=== PATIENT | female | born 1945 | race Caucasian/White ===

== ENCOUNTER 2021-05-16 10:42 | Inpatient (IN) | payer OTHER, MEDICARE ==
[~2021-05-16] VITALS: Ht 162.6 cm; Wt 104.6 kg
[2021-05-16 11:28] LABS: BASO # 0.1 x10^3/uL (0.0-0.2); BASO % 1 % (0-3); EOS # 0.1 x10^3/uL (0.0-0.7); EOS % 1 % (0-3); HEMATOCRIT 44.3 % (36.0-47.0); HEMOGLOBIN 14.5 g/dL (12.0-15.5); LYMPH # 2.4 x10^3/uL (1.0-4.8); LYMPH % 20 % (24-48); MEAN CORPUSCULAR HEMOGLOBIN 31 pg (25-35); MEAN CORPUSCULAR HGB CONC 33 g/dL (31-37); MEAN CORPUSCULAR VOLUME 93 fL (79-100); MONO % 9 % (0-9); NEUT # 8.3 x10^3uL (1.8-7.7); NEUT % 70 % (31-73); PLATELET COUNT 185 x10^3/uL (140-400); RED BLOOD COUNT 4.76 x10^6/uL (3.50-5.40); RED CELL DISTRIBUTION WIDTH 13.6 % (11.5-14.5); WHITE BLOOD COUNT 11.8 x10^3/uL (4.0-11.0)
[2021-05-16] MEDS ORDERED: MORPHINE SULFATE 4 MG/ML DISP.SYRIN. IV ONE (11:30)
[2021-05-16] MEDS ORDERED: IV NORMAL SALINE 1,000ML 1,000 ML IV ONE (11:30)
[2021-05-16] MEDS ORDERED: ONDANSETRON PF 4 MG/2 ML VIAL. IVP ONE (11:30)
--- NOTE | 2021-05-16 11:39 | PHYS DOC ---
Past History Past Surgical History: No Surgical History Alcohol Use: Rarely General Adult EDM: Chief Complaint: FLANK PAIN HPI: HPI: Patient is a 76-year-old female who presents with lower abdominal pain and bilateral flank pain. Patient states "it feels like I have a kidney stone". "The last kidney stones I had I had to have surgery". Patient states that symptoms started 2 weeks ago, been taking 800 mg ibuprofen every 6 hours with little relief. Rating pain 8/10. Patient is currently being treated for a UTI on antibiotics from her PCP. Denies fever. Review of Systems: Review of Systems: Constitutional: Denies fever or chills Eyes: Denies change in visual acuity HENT: Denies nasal congestion or sore throat Respiratory: Denies cough or shortness of breath Cardiovascular: Denies chest pain or edema GI: Reports lower abdominal pain, nausea, denies vomiting, bloody stools or diarrhea : Denies dysuria Musculoskeletal: Reports bilateral flank pain Integument: Denies rash Neurologic: Denies headache, focal weakness or sensory changes Endocrine: Denies polyuria or polydipsia Lymphatic: Denies swollen glands Psychiatric: Denies depression or anxiety Current Medications: Current Meds: Current Medications Medications (Trade) Dose Ordered Sig/Jaiden Start Time Stop Time Status Last Admin Dose Admin Morphine Sulfate (Morphine 4mg Syringe) 4 mg 1X ONCE 05/16/21 11:30 05/16/21 11:31 DC 05/16/21 11:21 4 MG Ondansetron HCl (Zofran) 4 mg 1X ONCE 05/16/21 11:30 05/16/21 11:31 DC 05/16/21 11:23 4 MG Sodium Chloride 1,000 ml @ 1,000 mls/hr 1X ONCE 05/16/21 11:30 05/16/21 12:29 05/16/21 11:19 1,000 MLS/HR Allergies: Allergies: Allergies Coded Allergies Type Severity Reaction Last Updated Verified No Known Drug Allergies 05/16/21 No Physical Exam: PE: Constitutional: Well developed, well nourished, no acute distress, non-toxic appearance. [] HENT: Normocephalic, atraumatic, bilateral external ears normal, oropharynx moist, no oral exudates, nose normal. [] Eyes: PERRLA, EOMI, conjunctiva normal, no discharge. [] Neck: Normal range of motion, no tenderness, supple, no stridor. [] Cardiovascular:Heart rate regular rhythm, no murmur [] Lungs & Thorax: Bilateral breath sounds clear to auscultation [] Abdomen: Bowel sounds normal, soft, lower abdomen tenderness, no masses, no p ulsatile masses. [] Skin: Warm, dry, no erythema, no rash. [] Back: No tenderness, bilateral CVA tenderness. [] Extremities: No tenderness, no cyanosis, no clubbing, ROM intact, no edema. [] Neurologic: Alert and oriented X 3, normal motor function, normal sensory function, no focal deficits noted. [] Psychologic: Affect normal, judgement normal, mood normal. [] Current Patient Data: Labs: Laboratory Tests Test 05/16/21 10:45 White Blood Count 11.8 x10^3/uL (4.0-11.0) H Red Blood Count 4.76 x10^6/uL (3.50-5.40) Hemoglobin 14.5 g/dL (12.0-15.5) Hematocrit 44.3 % (36.0-47.0) Mean Corpuscular Volume 93 fL (79-100) Mean Corpuscular Hemoglobin 31 pg (25-35) Mean Corpuscular Hemoglobin Concent 33 g/dL (31-37) Red Cell Distribution Width 13.6 % (11.5-14.5) Platelet Count 185 x10^3/uL (140-400) Neutrophils (%) (Auto) 70 % (31-73) Lymphocytes (%) (Auto) 20 % (24-48) L Monocytes (%) (Auto) 9 % (0-9) Eosinophils (%) (Auto) 1 % (0-3) Basophils (%) (Auto) 1 % (0-3) Neutrophils # (Auto) 8.3 x10^3uL (1.8-7.7) H Lymphocytes # (Auto) 2.4 x10^3/uL (1.0-4.8) Monocytes # (Auto) 1.0 x10^3/uL (0.0-1.1) Eosinophils # (Auto) 0.1 x10^3/uL (0.0-0.7) Basophils # (Auto) 0.1 x10^3/uL (0.0-0.2) Vital Signs: Vital Signs Date Time Temp Pulse Resp B/P (MAP) Pulse Ox O2 Delivery O2 Flow Rate FiO2 05/16/21 10:57 98.2 86 20 174/116 99 Room Air EKG: EKG: [] Radiology/Procedures: Radiology/Procedures: []EXAM: Abdomen and pelvis CT without intravenous contrast. HISTORY: Flank pain. TECHNIQUE: Computed tomographic images of the abdomen and pelvis were obtained without contrast. Multiplanar reformatting was performed. *One or more of the following individualized dose reduction techniques were utilized for this examination: 1. Automated exposure control. 2. Adjustment of the mA and/or kV according to patient size. 3. Use of iterative reconstruction technique. COMPARISON: 10/24/2013 FINDINGS: Evaluation of the lower thorax is unremarkable. There is a small hiatal hernia and there are postoperative changes involving the stomach. There is suspected hepatic steatosis. No focal hepatic lesion is seen. There is mild hepatomegaly. The gallbladder, pancreas, spleen and adrenal glands are unremarkable.. There is no evidence of hydronephrosis. There are punctate bilateral renal stones, the largest of which measure 1 mm. There is mild right renal atrophy and slight cortical lobulation likely due to scarring. The bladder is unremarkable. The uterus is unremarkable. There is a 4.4 cm fluid density structure within the right lower quadrant which may be due to a loop of fluid-filled bowel or ovarian or paraovarian in etiology. This is increased compared to the prior study. There is no appendicitis. There is extensive colonic diverticulosis. There is superimposed wall thickening and surrounding stranding and trace fluid involving the proximal sigmoid colon due to diverticulitis. There is an associated mural abscess. No drainable abscess is seen. There is no free air. The aorta is normal in caliber. There is no lymphadenopathy. There are degenerative changes involving the spine. There is no acute or suspicious osseous lesion. IMPRESSION: 1. Acute diverticulitis involving the proximal sigmoid colon superimposed on extensive colonic diverticulosis. There is an associated mural abscess. No drainable abscess or free air is seen. 2. Bilateral nephrolithiasis. 3. Hepatomegaly and hepatic steatosis. 4. Small hiatal hernia and postoperative changes involving the stomach. 5. 4.4 cm fluid density structure within the right lower quadrant. This is increased compared to the prior study. This may be an ovarian or paraovarian cyst or fluid-filled loop of small bowel. However, no convincing indication with the adjacent bowel loops is seen. The slow interval change favors benignity. Pelvic sonography may be useful if there is clinical concern. Electronically signed by: Génesis Thomas MD (05/16/2021 11:57 AM) [id number] Heart Score: C/O Chest Pain: No Risk Factors: Risk Factors: DM, Current or recent (<one month) smoker, HTN, HLP, family history of CAD, obesity. Risk Scores: Score 0 - 3: 2.5% MACE over next 6 weeks - Discharge Home Score 4 - 6: 20.3% MACE over next 6 weeks - Admit for Clinical Observation Score 7 - 10: 72.7% MACE over next 6 weeks - Early Invasive Strategies Course & Med Decision Making: Course & Med Decision Making Pertinent Labs and Imaging studies reviewed. (See chart for details) [] 76 old female presents with lower abdominal pain that radiates to bilateral flank. Patient states that she is currently being treated for a UTI and was placed on antibiotics from her PCP. Patient has a history of kidney stones and had to have lithotripsy the last 2 stones she has had. Patient been taking 800 mg ibuprofen every 6 hours with no pain relief. Symptoms started 2 weeks ago. Patient given 4 mg morphine, 4 mg of Zofran, NS bolus. CT abdomen pelvis ordered to rule out stones. CT of abdomen pelvis showed no evidence of hydronephrosis.CT shows acute diverticulitis involving the proximal sigmoid colon superimposed on extensive colonic diverticulosis. There is an associated mural abscess. No drainable abscess. Discussed results with patient and discussed admission plan. Spoke with Dr. Zambrano who will accept patient. Patient started on metronidazole and ciprofloxacin. Patient is stating her pain is controlled at this time. Dragon Disclaimer: Dragon Disclaimer: This electronic medical record was generated, in whole or in part, using a voice recognition dictation system. Departure Departure: Impression: Primary Impression: Diverticulitis Disposition: HOME / SELF CARE / HOMELESS Condition: STABLE Referrals: KELLEY MALONE (PCP) DUNG TATE APRN May 16, 2021 11:39
[2021-05-16 11:48] LABS: CALCIUM 8.8 mg/dL (8.5-10.1); CREATININE 0.8 mg/dL (0.6-1.0); GFR 70.1; POTASSIUM 3.9 mmol/L (3.5-5.1)
[2021-05-16 11:53] LABS: ALBUMIN 3.3 g/dL (3.4-5.0); TOTAL BILIRUBIN 0.8 mg/dL (0.2-1.0); TOTAL PROTEIN 6.6 g/dL (6.4-8.2)
--- NOTE | 2021-05-16 12:00 | RAD ---
EXAM: Abdomen and pelvis CT without intravenous contrast. HISTORY: Flank pain. TECHNIQUE: Computed tomographic images of the abdomen and pelvis were obtained without contrast. Mult iplanar reformatting was performed. *One or more of the following individualized dose reduction techniques were utilized for this examina tion: 1. Automated exposure control. 2. Adjustment of the mA and/or kV according to patient size. 3. Use of iterative reconstruction technique. COMPARISON: 10/24/2013 FINDINGS: Evaluation of the lower thorax is unremarkable. There is a small hiatal hernia and there ar e postoperative changes involving the stomach. There is suspected hepatic steatosis. No focal hepatic lesion is seen. There is mild hepatomegaly. The gallbladder, pancreas, spleen and adrenal glands are unremarkable.. There is no evidence of hydronephrosis. There are punctate bilateral renal stones, the largest of whi ch measure 1 mm. There is mild right renal atrophy and slight cortical lobulation likely due to scarr ing. The bladder is unremarkable. The uterus is unremarkable. There is a 4.4 cm fluid density structu re within the right lower quadrant which may be due to a loop of fluid-filled bowel or ovarian or par aovarian in etiology. This is increased compared to the prior study. There is no appendicitis. There is extensive colonic diverticulosis. There is superimposed wall thick ening and surrounding stranding and trace fluid involving the proximal sigmoid colon due to diverticu litis. There is an associated mural abscess. No drainable abscess is seen. There is no free air. The aorta is normal in caliber. There is no lymphadenopathy. There are degenerative changes involving the spine. There is no acute or suspicious osseous lesion. IMPRESSION: 1. Acute diverticulitis involving the proximal sigmoid colon superimposed on extensive colonic divert iculosis. There is an associated mural abscess. No drainable abscess or free air is seen. 2. Bilateral nephrolithiasis. 3. Hepatomegaly and hepatic steatosis. 4. Small hiatal hernia and postoperative changes involving the stomach. 5. 4.4 cm fluid density structure within the right lower quadrant. This is increased compared to the prior study. This may be an ovarian or paraovarian cyst or fluid-filled loop of small bowel. However, no convincing indication with the adjacent bowel loops is seen. The slow interval change favors carmen gnity. Pelvic sonography may be useful if there is clinical concern. Electronically signed by: Génesis Thomas MD (05/16/2021 11:57 AM) [id number]
[2021-05-16] MEDS ORDERED: CIPROFLOXACIN 400MG PREMIX 200 ML IV ONE (13:15)
[2021-05-16 13:47] LABS: BACTERIA,URINE FEW /HPF (0-FEW); BILIRUBIN,URINE NEG (NEG); CLARITY,URINE CLEAR; COLOR,URINE YELLOW; GLUCOSE,URINE NEG (NEG); NITRITE,URINE NEG (NEG); RBC,URINE 0 /HPF (0-2); UROBILINOGEN,URINE 0.2 mg/dL (0.2 mg/dL); WBC,URINE RARE /HPF (0-4)
[2021-05-16] MEDS ORDERED: IV DEXTROSE 5%-LACT RINGERS 1,000 ML IV ONE (22:15)
[2021-05-16 23:24] VITALS: BP 172/83
[2021-05-16] MEDS ORDERED: CRESTOR20 MG PO (23:36)
[2021-05-16] MEDS ORDERED: CEFU500T46 PO (23:36)
[2021-05-16] MEDS ORDERED: METF500T16 PO (23:36)
[2021-05-16] MEDS ORDERED: LACT1CAP38 PO (23:36)
[2021-05-16] MEDS ORDERED: PHEN100T82 PO (23:36)
[2021-05-16] MEDS ORDERED: PROG100C15 PO (23:36)
[2021-05-16] MEDS ORDERED: CIPR500T2 PO (23:36)
[2021-05-17] MEDS: MORPHINE SULFATE 2 MG/ML DISP.SYRIN. IVP PRN ×3 (03:58→19:46)
[2021-05-17 05:33] VITALS: BP 143/81
[2021-05-17] MEDS: ONDANSETRON PF 4 MG/2 ML VIAL. IVP PRN ×2 (10:24→19:46)
[2021-05-17 10:37] VITALS: BP 163/84
[2021-05-17 15:35] VITALS: BP 158/73
[2021-05-17] MEDS ORDERED: DEXTROSE 50% 25 GM / 50ML DISP.SYRIN. IV PRN (15:45)
--- NOTE | 2021-05-17 16:18 | HP ---
HISTORY OF PRESENT ILLNESS: The patient is a 76-year-old female patient who presented to the Emergency Room with the lower abdominal pain, bilateral flank pain. She stated that she has been complaining of this pain for the last 3 weeks and as of on the day of admission, her pain has dramatically worsened. She has been taking 800 mg of ibuprofen every 6 hours with good relief. She rated her pain as about 8/10. She was treated for an UTI by her primary care physician with antibiotic. She denied any nausea or vomiting. Denies any fever, did have some diarrhea, but denies any constipation. She denied any dysuria, frequency or hematuria. She was extensively investigated in the emergency room of [facility] where she has had lab work, which showed that her chemistry was unremarkable. Her white cell count was slightly elevated at 11.8. Her urinalysis was essentially unremarkable; however, CT scan of the abdomen and pelvis showed that the patient has acute diverticulitis involving the proximal sigmoid colon superimposed on extensive colonic diverticulosis and associated mural abscess. No drainable abscess or free air is seen. Bilateral nephrolithiasis, hepatomegaly and hepatic steatosis, small hiatal hernia and postoperative changes involving the stomach. She has also 4.4 cm fluid density structure within the right lower quadrant. This increased compared to the prior study. This may be an ovarian cysts or fluid-filled loops of small bowel; however, no convincing indication with adjacent bowel loops are seen. A slow interval change favors benign. The pelvic sonography may be useful if there is clinical concern. The patient was admitted with diagnosis of acute diverticulitis. The patient has no evidence of hydronephrosis. There are punctate bilateral renal stones, the largest of which was only 1 mm. There is mild renal atrophy and slight cortical lobulation likely due to scarring. The bladder is unremarkable. The uterus is unremarkable. She was kept n.p.o., started on IV fluid and IV antibiotic. PAST MEDICAL HISTORY: Significant for type 2 diabetes mellitus, hyperlipidemia, nephrolithiasis x6, most of the stones have passed on its own. She underwent a cystoscopy and retrograde pyelography and stone retrieval once. PAST SURGICAL HISTORY: Significant for , tonsillectomy and cataract extraction. ALLERGIES: SHE IS ALLERGIC TO T3. MEDICATIONS: She is currently on the following medication: She is on lactobacillus casei, folic acid, ___ capsule 1 capsule daily, metformin 500 mg with meals, progesterone, Prometrium 100 mg capsule once a day, phenazopyridine 100 mg 3 times a day, and Crestor 20 mg at bedtime. FAMILY HISTORY: She is adopted and does not know her biological parents. SOCIAL HISTORY: She is single. She does not smoke, drinks alcohol occasionally. Does not use any drugs. 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 REVIEW OF SYSTEMS: The patient has bilateral cataract extraction, but denied any glaucoma or macular degeneration. Denied any earache, tinnitus or sensory deafness. Denied any nosebleed, stuffy nose or postnasal drip. Denied any sore throat, sore tongue, toothache, hoarseness of voice or difficulty swallowing. Denied any nausea or vomiting. Did complain of diarrhea, but denied any hematemesis, melena or hematochezia. Denied any dysuria, frequency or hematuria. Denied any chest pain, shortness of breath, orthopnea, paroxysmal nocturnal dyspnea. PHYSICAL EXAMINATION: GENERAL: On arrival to the emergency room, she looked well and was clearly in no apparent respiratory distress. No pallor, jaundice, cyanosis or thyromegaly. No jugular venous distention. No limb edema. VITAL SIGNS: Her heart rate was 86, blood pressure is 174/116, temperature was 98.2, respiratory rate 20, and oxygen saturation was 99% on room air. HEAD, EYES, EARS, NOSE AND THROAT: Shows normocephalic, atraumatic. NECK: Supple. HEART: Showed normal first and second heart sounds. No gallop, rub or murmur. CHEST: Showed central trachea, equal bilateral expansion, air entry, no crepitation or rhonchi. ABDOMEN: Distended, soft with tenderness in the lower abdomen, no guarding or rigidity. No organomegaly. All hernial orifice intact. Bowel sounds normal. NEUROLOGIC: She is awake, alert, oriented x3. She has no motor or sensory deficit. Her affect, judgment and mood were normal. SKIN: Dry with no erythema or rashes. EXTREMITIES: Showed no clubbing, cyanosis or edema. LABORATORY DATA: Showed a white cell count of 11,800, hemoglobin 14.5, hematocrit 44, MCV 93, and platelet count of 185,000. Her chemistry showed a serum sodium 141, potassium 3.9, chloride 107, bicarbonate 26, anion gap of 8, BUN 15, creatinine 0.8, estimated GFR was 70 mL per minute, her glucose 100, calcium was 8.8. Total bilirubin, AST, ALT, alkaline phosphatase were normal. Total protein was 6.6, albumin 3.3. Urinalysis was essentially unremarkable and her CT scan of the abdomen and pelvis showed that the patient has acute diverticulitis involving the proximal sigmoid colon superimposed on extensive colonic diverticulosis. There is an associated mural abscess. No drainable abscess or free air is seen. She has bilateral nephrolithiasis. Hepatomegaly with hepatic steatosis. Small hiatal hernia. Postoperative changes involving the stomach. She has 4.4 cm fluid density structure within the right lower quadrant consistent probably with ovarian or paraovarian cyst. PLAN: The patient was started on IV fluid, IV antibiotic, morphine and ondansetron. Her other medical problems include diabetes mellitus, hyperlipidemia, and nephrolithiasis. GENARO DR: Jose TID: [id number]
[2021-05-17] MEDS: PIPERACILLIN/TAZOBACTAM 3.375 GM in IV NORMAL SALINE 50ML 50 ML IV SCH ×2 (16:58→23:58)
[2021-05-17] MEDS: POTASSIUM CL 20MEQ D5-0.45NACL 1,000 ML IV SCH (16:59)
[2021-05-17] MEDS: INSULIN LISPRO 300 UNITS/3 ML VIAL. SQ SCH (17:00)
[2021-05-17 19:43] VITALS: BP 144/81
[2021-05-17 23:41] VITALS: BP 143/76
[2021-05-18] MEDS: POTASSIUM CL 20MEQ D5-0.45NACL 1,000 ML IV SCH ×3 (03:40→21:45)
[2021-05-18] MEDS: PIPERACILLIN/TAZOBACTAM 3.375 GM in IV NORMAL SALINE 50ML 50 ML IV SCH ×4 (06:08→23:25)
[2021-05-18 06:19] LABS: HEMATOCRIT 38.4 % (36.0-47.0); RED BLOOD COUNT 4.19 x10^6/uL (3.50-5.40); RED CELL DISTRIBUTION WIDTH 13.4 % (11.5-14.5); WHITE BLOOD COUNT 8.6 x10^3/uL (4.0-11.0)
[2021-05-18 06:21] VITALS: BP 156/84
[2021-05-18 06:30] LABS: ALBUMIN 2.8 g/dL (3.4-5.0); ALBUMIN/GLOBULIN RATIO 0.8 (1.0-1.7); CREATININE 0.7 mg/dL (0.6-1.0); GFR 81.8; POTASSIUM 3.7 mmol/L (3.5-5.1); TOTAL BILIRUBIN 0.6 mg/dL (0.2-1.0); TOTAL PROTEIN 6.2 g/dL (6.4-8.2)
[2021-05-18] MEDS: INSULIN LISPRO 300 UNITS/3 ML VIAL. SQ SCH ×3 (07:37→16:46)
[2021-05-18 10:38] VITALS: BP 161/75
[2021-05-18 14:55] VITALS: BP 149/77
[2021-05-18 20:14] VITALS: BP 151/73
--- NOTE | 2021-05-18 21:03 | PN ---
DATE: 05/18/2021 ATTENDING PHYSICIAN: Dr. Zambrano. SUBJECTIVE: Pain is improved. She is hungry. Feel although nausea. OBJECTIVE FINDINGS: VITAL SIGNS: Blood pressure today is 143/76. She is afebrile, pulse 61 and regular, oxygen saturation 97% on room air. HEENT: Head is without trauma. Pupils are reactive. Sclerae nonicteric. The oropharynx is clear. NECK: Supple, no bruits identified. LUNGS: Clear. CARDIOVASCULAR: Showed regular heart tones. No gallop. ABDOMEN: Soft. EXTREMITIES: Without edema. There is no guarding or rebound tenderness. NEUROLOGIC FUNCTION: Focally intact. ASSESSMENT: 1. A 76-year-old female with acute diverticulitis of sigmoid colon. 2. Chronic low back pain. 3. Type 2 diabetes mellitus. PLAN: 1. Continue antibiotics. 2. Advance diet to full liquids. 3. Pain and nausea control. 4. Glucose control. 5. Tentative discharge tomorrow. IHSAN DR: Andrew TID: [id number]
[2021-05-18 22:51] VITALS: BP 128/72
[2021-05-19 05:16] VITALS: BP 168/84
[2021-05-19] MEDS: PIPERACILLIN/TAZOBACTAM 3.375 GM in IV NORMAL SALINE 50ML 50 ML IV SCH (05:35)
[2021-05-19] MEDS: POTASSIUM CL 20MEQ D5-0.45NACL 1,000 ML IV SCH (07:45)
[2021-05-19] MEDS: INSULIN LISPRO 300 UNITS/3 ML VIAL. SQ SCH (08:00)
--- NOTE | 2021-05-19 11:21 | DS ---
DATE OF DISCHARGE: 05/19/2021 ATTENDING PHYSICIAN: Dr. Zambrano. FINAL DISCHARGE DIAGNOSES: 1. Acute diverticulitis. 2. Chronic low back pain. 3. Type 2 diabetes, controlled. HISTORY AND PHYSICAL: The patient is a pleasant 76-year-old female, very active, still working. She comes in with abdominal pain. Workup in the ED showed acute diverticulitis. PHYSICAL EXAMINATION: Please see the dictated note. PERTINENT LABORATORY AND X-RAY STUDIES: Admission hemoglobin was 14.5 g/dL, white count 11,800, repeated 2 days later was down to 8600. Electrolytes unremarkable. Nonfasting blood sugar in the low 100s. The admission creatinine was 0.7 mg/dL with a sodium 144 mEq per liter, potassium 3.7 mEq per liter. COURSE IN THE HOSPITAL: The patient received 3 full days of intravenous antibiotics with marked improvement. Diet was advanced. Pain control and home medications were continued. Sugars were monitored. She did quite well. On the fourth hospital day, she was discharged home. I recommended 7 more days of cephalexin 500 mg p.o. t.i.d. In addition, she will continue her metformin, progesterone and I recommended Tylenol for pain. Care must be given for chronic use of nonsteroidal anti-inflammatory drugs. We had a long discussion. She will follow up with her regular PCP. A note for work release through 05/29. The patient was then discharged from our hospital in stable condition with explicit drug and followup care. Total discharge time spent [address]: Andrew TID: [id number] CC: Darling Hackett
== END 2021-05-19 10:58 | disposition home or self-care (01) | DRG 392 ==
LOC: ER 10:42 → 1 SOUTH 22:46
PROVIDERS: ADMIT Internal Medicine; ATTEND Internal Medicine
DX: K57.32 Diverticulitis of large intestine without perforation or abscess without bleeding (principal); E44.0 Moderate protein-calorie malnutrition; E11.9 Type 2 diabetes mellitus without complications; E78.5 Hyperlipidemia, unspecified; G89.29 Other chronic pain; K76.0 Fatty (change of) liver, not elsewhere classified; Z87.442 Personal history of urinary calculi; Z68.39 Body mass index [BMI] 39.0-39.9, adult
CPT/HCPCS: 36415; 74176; 80053; 81001; 82947; 85025; 85027; 96361; 96365; 96375; J0744; J1815; J2270; J2405; J2543; J3490; 99285-25; J7030